=== PATIENT | male | born 1960 | race Caucasian/White ===

== ENCOUNTER 2016-12-08 01:03 | Emergency (ER) | payer BC ==
[2016-12-08 01:08] VITALS: RESP 18
[2016-12-08] MEDS ORDERED: ASPIRIN 81 MG CHEW PO STA (01:19)
[2016-12-08 01:43] LABS: Basophils % (A) 0 %; CH 30.8; CHCM 35.4; Eosinophils # (A) 0.1 k/uL (0-0.7); Eosinophils % (A) 1 %; HCT 43.1 % (39.0-53.0); HGB 14.6 gm/dL (13.0-17.5); Luc # (Auto) 0.15; Luc % (Auto) 2; Lymphocytes # (A) 1.4 k/uL (1.0-4.8); Lymphocytes % (A) 14 %; MCH 29.6 pg (25.0-35.0); MCV 87.2 fL (80.0-100.0); Mean Platelet Volume 7.7; Monocytes # (A) 0.4 k/uL (0-1.0); Monocytes % (A) 4 %; Neutrophils # (A) 8.3 k/uL (1.3-7.7); Neutrophils % (A) 80 %; RBC 4.94 m/uL (4.30-5.90); RDW 12.7 % (11.5-15.5); WBC 10.4 k/uL (3.8-10.6); WBC (Perox) 10.16
[2016-12-08 01:55] LABS: ALT 45 U/L (21-72); AST 28 U/L (17-59); Alkaline Phosphatase 55 U/L (38-126); Amylase 85 U/L (30-110); Anion Gap 12 mmol/L; Blood Urea Nitrogen 22 mg/dL (9-20); Calcium 9.5 mg/dL (8.4-10.2); Carbon Dioxide 24 mmol/L (22-30); Chloride 102 mmol/L (98-107); Glucose 114 mg/dL (74-99); Magnesium 2.1 mg/dL (1.6-2.3); Non-African American GFR(MDRD) >60 (>60 ml/min/1.73 sqM); Partial Thromboplastin Time 22.8 sec (22.0-30.0); Sodium 138 mmol/L (137-145); Total Bilirubin 0.5 mg/dL (0.2-1.3); Total Protein 7.4 g/dL (6.3-8.2)
[2016-12-08 02:06] LABS: Creatine Kinase 93 U/L (55-170)
--- NOTE | 2016-12-08 02:13 | XR ---
EXAM: XR Chest, 1 View CLINICAL HISTORY: Reason: chest pain TECHNIQUE: Frontal view of the chest. COMPARISON: No relevant prior studies available. FINDINGS: Lungs: Unremarkable. No consolidation. Pleural space: Unremarkable. No pneumothorax. Heart: Unremarkable. No cardiomegaly. Mediastinum: Unremarkable. Bones/joints: Unremarkable. IMPRESSION: No evidence of acute cardiopulmonary disease.
[2016-12-08 02:19] LABS: Creatine Kinase MB 1.3 ng/mL (0.0-2.4); Troponin I <0.012 ng/mL (0.000-0.034)
[2016-12-08] MEDS ORDERED: ONDANSETRON 4 MG/2 ML VIAL IVP STA (02:24)
[2016-12-08] MEDS ORDERED: SODIUM CHLORIDE 0.9% 1,000 ML IV ONE (02:54)
--- NOTE | 2016-12-08 04:00 | ED ---
Chest Pain HPI - General Chief Complaint: Chest Pain Stated Complaint: Dizzy/Nausea/Chest Tight Time Seen by Provider: 12/08/16 01:18 Source: patient Mode of arrival: wheelchair Limitations: no limitations - History of Present Illness Initial Comments: This patient is a 56-year-old man who presents to be evaluated after he had some chest tightness and some dizziness that started around 6 PM tonight. The patient states that he had been working out on exercise bike. Patient states that he does this regularly and has not had any chest pain previously. The symptoms did resolve her dizziness and that was the main thing that brought him here. He is denying any associated dyspnea, diaphoresis, nausea or vomiting, palpitations or syncope. MD Complaint: chest pain Onset/Timin -: hour(s) Onset: during exertion Pain Location: substernal Pain Radiation: none Severity: mild Quality: tightness Consistency: constant Improves With: nothing Worsens With: nothing Anginal Symptoms: other (Dizziness) Treatments Prior to Arrival: aspirin - Related Data Home Medications Medication Instructions Recorded Confirmed Doxylamine Succinate [Unisom] 25 mg PO HS 08/31/14 12/08/16 Melatonin 5 mg PO HS 03/06/15 12/08/16 Multivitamins, Thera [Multivitamin 1 tab PO DAILY@1200 03/06/15 12/08/16 (formulary)] Allergies Allergy/AdvReac Type Severity Reaction Status Date / Time erythromycin base Allergy GENITAL Verified 12/08/16 01:08 [Erythromycin Base] SORES Penicillins Allergy DIZZINESS, Verified 12/08/16 01:08 TUNNEL VISION Sulfa (Sulfonamide Allergy SORES IN Verified 12/08/16 01:08 Antibiotics) BOWEL sulfamethoxazole Allergy Unknown Verified 12/08/16 01:08 [From Bactrim] trimethoprim [From Bactrim] Allergy Unknown Verified 12/08/16 01:08 codeine AdvReac MADE PT Verified 12/08/16 01:08 VERY SLEEPY Review of Systems ROS Statement: Those systems with pertinent positive or pertinent negative responses have been documented in the HPI. ROS Other: All systems not noted in ROS Statement are negative. Constitutional: Denies: fever, chills, weakness Eyes: Denies: vision change Respiratory: Denies: cough, dyspnea, wheezes Cardiovascular: Reports: as per HPI, chest pain. Denies: palpitations, dyspnea on exertion, edema, syncope Gastrointestinal: Denies: abdominal pain, nausea, vomiting, diarrhea Genitourinary: Denies: dysuria, hematuria Musculoskeletal: Denies: back pain Skin: Denies: rash Neurological: Denies: headache, weakness, numbness EKG Findings - EKG Results: EKG: interpreted by YESSI RIDDLE (Rate 61 bpm), sinus rhythm, normal axis, normal QRS, normal ST/T, no acute changes - ND, Pacemaker, Normal: Normal tracing: normal tracing Past Medical History Past Medical History: Asthma, GERD/Reflux Additional Past Medical History / Comment(s): Diverticulitis History of Any Multi-Drug Resistant Organisms: None Reported Past Surgical History: Appendectomy, Bowel Resection, Orthopedic Surgery, Prostate Surgery Additional Past Surgical History / Comment(s): TURP IN 2006. BOWEL RESECTION 2008 for diverticulitis. MARKUS. EYE SURGERY (STRABISMUS) 2013, left knee arthroscopically 2013, pain clinic injections Past Anesthesia/Blood Transfusion Reactions: No Reported Reaction Past Psychological History: Depression Smoking Status: Never smoker Past Alcohol Use History: None Reported Additional Past Alcohol Use History / Comment(s): Patient is a lifelong nonsmoker but has had extensive exposure to secondhand smoke. 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 He is currently living alone. There are no pets. 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 Past Drug Use History: None Reported - Past Family History Father Family Medical History: Cancer Additional Family Medical History / Comment(s): LUNG CANCER General Exam Limitations: no limitations General appearance: alert, in no apparent distress Head exam: Present: atraumatic, normocephalic Eye exam: Present: normal appearance. Absent: scleral icterus, conjunctival injection ENT exam: Present: normal oropharynx Neck exam: Present: normal inspection, full ROM Respiratory exam: Present: normal lung sounds bilaterally. Absent: respiratory distress, wheezes, rales, rhonchi Cardiovascular Exam: Present: regular rate, normal rhythm, normal heart sounds. Absent: systolic murmur, diastolic murmur, rubs, gallop GI/Abdominal exam: Present: soft. Absent: distended, tenderness, guarding, rebound Extremities exam: Present: normal inspection, normal capillary refill. Absent: pedal edema, calf tenderness Back exam: Present: normal inspection. Absent: CVA tenderness (R), CVA tenderness (L) Neurological exam: Present: alert Skin exam: Present: warm, dry, intact, normal color. Absent: rash Course Vital Signs 12/08/16 12/08/16 12/08/16 01:06 02:05 03:15 Temperature 98.0 F Pulse Rate 62 62 63 Respiratory 18 18 18 Rate Blood Pressure 137/77 126/82 127/74 O2 Sat by Pulse 100 98 97 Oximetry 12/08/16 05:02 Temperature 96.9 F L Pulse Rate 73 Respiratory 18 Rate Blood Pressure 138/83 O2 Sat by Pulse 99 Oximetry Chest Pain MDM - MDM Patient's 56 year old man who had an episode of chest pain that did resolve and some dizziness following exercise. Discussed admission for telemetry monitoring and serial cardiac enzymes with cardiology consultation with the patient does not want stay. He does understand that these can be associated with cardiac disease and he will follow-up to have a stress test. He will return should any symptoms recur. Also discussed that only one set of cardiac enzymes can occasionally miss ND and the patient understands and will follow-up. Disposition Clinical Impression: Chest pain Disposition: HOME SELF-CARE Condition: Good Instructions: Chest Pain (ED) Additional Instructions: As we discussed, follow-up with the grass farmer to have a stress test. Should any of the symptoms recur, or if any other symptoms develop return immediately. Referrals: Kurt Lundberg MD [Primary Care Provider] - 1-2 days Bam Sullivan MD [STAFF PHYSICIAN] - 1-2 days
[2016-12-08 05:08] VITALS: BP 138/83; PULSE 73; TEMP 96.9
== END 2016-12-08 05:02 | disposition home or self-care (01) ==
LOC: EC 01:03
DX: R07.89 Other chest pain (principal); R42 Dizziness and giddiness; Z88.0 Allergy status to penicillin; Z88.1 Allergy status to other antibiotic agents; Z88.2 Allergy status to sulfonamides; Z88.5 Allergy status to narcotic agent; Z79.899 Other long term (current) drug therapy
CPT/HCPCS: 99285; 96374; 96361 ×2; 36415; 93005; 85379; 80053; 82150; 82550; 82553; 83690; 83735; 84484; 85025; 85610; 85730; 71010; J2405

== ENCOUNTER → 2016-12-24 | Outpatient (CLI) | payer BC ==
[2016-12-24 11:08] LABS: Prostate Specific Antigen 0.56 ng/mL (0.00-4.00)
== END | disposition home or self-care (01) ==
LOC: LABWHC1 07:35
PROVIDERS: ATTEND Family Medicine
DX: N40.0 Benign prostatic hyperplasia without lower urinary tract symptoms (principal); Z13.220 Encounter for screening for lipoid disorders
CPT/HCPCS: 36415; 80061; 84153

== ENCOUNTER 2017-01-03 10:52 | Day surgery (SDC) | payer BC ==
[2016-12-31 12:28] VITALS: BMI 25.8
[~2017-01-03 10:52] MED LIST: LACTATED RINGERS 1,000 ML IV SCH; LIDOCAINE 1% 20 ML VIAL (10MG/ML) FOR IV START INTRADERMA PRN
[2017-01-03 11:18] VITALS: TEMP 98.3
[2017-01-03] MEDS ORDERED: PROPOFOL 10 MG/ML 20 ML VIAL IV ONE (13:35)
[2017-01-03] MEDS ORDERED: IV FLUID CONTINUATION 1,000 ML IV ONE (13:51)
--- NOTE | 2017-01-03 14:13 | P.PCN ---
Date of Procedure: 01/03/17 Preoperative Diagnosis: Postoperative Diagnosis: Procedure(s) Performed: Procedures: 1. Esophagogastroduodenoscopy and biopsy. 2. Total colonoscopy. Preoperative diagnosis: Chronic reflux symptoms and screening for colon neoplasia. Postoperative diagnosis: 1. Very small sliding hiatal hernia with low-grade distal esophagitis. 2. Mild antral gastritis. 3. Diverticulosis with no evidence of acute diverticulitis or strictures. Preparation: HalfLytely prep Sedation: Was provided by anesthesia. Brief clinical history: The patient is a 56-year-old male who is scheduled for this evaluation because of chronic reflux symptoms requiring ongoing therapy. No other alarm symptoms. He also has history of diverticulosis and required segmental resection following a bout of diverticulitis in 2008. This evaluation is to assess for complicated reflux disease and colon neoplasia, age being his risk factor. Procedure: With the patient on his left lateral decubitus position and after informed consent and adequate sedation, I passed the Olympus-GIF 160 video upper endoscope through the cricopharyngeus down the esophagus. GE junction was around 42-43 cm from the incisors and there was a very small sliding hiatal hernia. The esophagus showed a short linear erosion or 2 consistent with LA grade A distal esophagitis. There were no strictures or Fischer's esophagus. The endoscope was then passed into the stomach which was insufflated with air and inspected in detail including the retroflex view in the cardia. There was mild mottling and erythema in the antrum but no ulcers or erosions. Pyloric channel, duodenal bulb, post bulbar area and descending duodenum appeared within normal limits. Because of his symptoms, I obtained biopsies from the duodenum, antrum and esophagus then the endoscope was withdrawn and I proceeded with the colonoscopy. Perianal area did not show any fissures or fistulas. There were no masses felt on digital rectal examination. The Olympus CFQ 160L video colonoscope was then inserted in the rectum in the usual fashion and advanced to the cecum. There were multiple diverticular orifices seen scattered along the length of the bowel all the way to the cecum with no evidence of acute diverticulitis or strictures. The mucosa appeared healthy. No polyps or tumors were seen. I retroflexed the endoscope in the rectum before the endoscope was withdrawn. The patient tolerated the procedure well. Plan: The patient was reassured. Will await biopsy results. Discussed dietary measures. For colon cancer screening, I would recommend repeat exam in 10 years. He will follow up with you as planned. Implants: Indications for Procedure: Operative Findings: Description of Procedure:
[2017-01-03 14:18] VITALS: RESP 18
[2017-01-03 14:26] VITALS: PULSE 69
[2017-01-03 14:35] VITALS: BP 112/80
== END 2017-01-03 15:00 | disposition home or self-care (01) ==
LOC: ORWHC2ENDO 10:52
DX: Z12.11 Encounter for screening for malignant neoplasm of colon (principal); K29.50 Unspecified chronic gastritis without bleeding; K21.0 Gastro-esophageal reflux disease with esophagitis; K44.9 Diaphragmatic hernia without obstruction or gangrene; J45.998 Other asthma; K57.30 Diverticulosis of large intestine without perforation or abscess without bleeding; Z88.1 Allergy status to other antibiotic agents; Z88.0 Allergy status to penicillin; Z88.2 Allergy status to sulfonamides; Z88.5 Allergy status to narcotic agent; Z79.51 Long term (current) use of inhaled steroids; Z79.899 Other long term (current) drug therapy
CPT/HCPCS: 88305; 88342; 43239; J2704; G0121

== ENCOUNTER → 2017-02-28 | Outpatient (CLI) | payer BC ==
--- NOTE | 2017-02-28 09:16 | CT ---
EXAMINATION TYPE: CT sinus wo con DATE OF EXAM: 02/28/2017 COMPARISON: 05/25/2013 HISTORY: Acute frontal sinusitis CT DLP: 609.4 mGycm CONTRAST: 0 mL of Omnipaque 350 The paranasal sinuses are examined in the axial plane at 2 mm thick sections. Reconstructed images i n the coronal plane were obtained. There is dental amalgam scatter artifact Small retention cysts are within the inferior left maxillary sinus. The ethmoid air cells are clear. The sphenoid sinuses are clear. The frontal sinuses are clear. Right frontal sinus is aplastic. The septum is evaluated. There is septal deviation to the [left septal spur is present.. The ostiomeatal units are patent. There is a high riding right jugular bulb. IMPRESSIONS: 1. Left septal deviation with a spur. 2. Very small retention cyst within the inferior left maxillary sinus. 3. The frontal sinus appears clear.
== END | disposition home or self-care (01) ==
LOC: RADCTMAIN 07:23
PROVIDERS: ATTEND Family Medicine
DX: J34.2 Deviated nasal septum (principal); J34.1 Cyst and mucocele of nose and nasal sinus
CPT/HCPCS: 70486

== ENCOUNTER → 2017-10-30 | Outpatient (CLI) | payer BC ==
--- NOTE | 2017-10-30 08:14 | MR ---
EXAMINATION TYPE: MR knee LT wo con DATE OF EXAM: 10/30/2017 COMPARISON: 05/23/2015 HISTORY: Left knee pain TECHNIQUE: Multiplanar, multisequence imaging of the left knee is performed without IV contrast. FINDINGS: There is a complete tear of the anterior cruciate ligament. Posterior cruciate ligament dem onstrates abnormal signal along the proximal origin of the femur suspicious for partial tear as well. This appears progressed from the prior exam. There is a significant narrowing of the medial compartment of the joint space with hypertrophic spurr ing. Grade IV chondromalacia of the articular cartilage along the medial compartment noted. There is grade II chondromalacia patellofemoral joint. There is a small amount of fluid in the suprapatellar bursa. Retinaculum intact. Patellar and quadric eps tendons intact. Medial collateral and lateral collateral ligaments are intact. Pseudo extrusion of the medial meniscu s noted. There is a degenerative tear of the posterior horn and body of the medial meniscus. Lateral meniscus appears intact with intrasubstance signal along the posterior horn compatible with m yxoid degeneration. Marrow signal abnormalities involving the medial tibia and femur likely reactive related to the sever e arthropathy. No diagnostic evidence of fracture or osteonecrosis. Incidental note is made of subcutaneous varices. IMPRESSION: 1. Complete tear of the ACL with partial proximal tear of the PCL. 2. Severe osteoarthritis with chondromalacia as described above. Pseudo extrusion of the medial menis cus with degenerative tear suspected.
== END | disposition home or self-care (01) ==
LOC: RADMRIMAIN 07:14
PROVIDERS: ATTEND Orthopaedic Surgery
DX: S83.512A Sprain of anterior cruciate ligament of left knee, initial encounter (principal); M17.12 Unilateral primary osteoarthritis, left knee; M94.262 Chondromalacia, left knee

== ENCOUNTER → 2018-01-02 | Outpatient (CLI) | payer BC ==
--- NOTE | 2018-01-02 12:24 | US ---
EXAMINATION TYPE: US venous doppler duplex LE LT DATE OF EXAM: 01/02/2018 11:28 AM COMPARISON: NONE CLINICAL HISTORY: I82.402 ACUTE EMBOLISM AND THROMBOSIS OF DEEP VEINS OF LT LE; left calf pain with l ower leg swelling x 1 week and fracture to Lt 5th metatarsal after patient stumbled on stairs; varico se veins medial left leg SIDE PERFORMED: Left leg TECHNIQUE: The lower extremity deep venous system is examined utilizing real time linear array sonog radha with graded compression, doppler sonography and color-flow sonography. VESSELS IMAGED: Common Femoral Vein Deep Femoral Vein Greater Saphenous Vein * Femoral Vein Popliteal Vein Small Saphenous Vein * Proximal Calf Veins (* superficial vessels) Left Leg: Lack of flow and echogenic thrombus indicating DVT left Femoral Vein and Popliteal Vein and upper Calf Veins. Non occluding SVT in upper Left GSV. IMPRESSION: Deep venous thrombosis involving the left femoral vein, left popliteal vein and extendin g into the left upper calf veins. Nonoccluding superficial venous thrombosis is also seen within the left greater saphenous vein. Tech findings called to Dr Lundberg at exam's end documented at 11:52 AM. Patient is taking Eloquis
== END | disposition home or self-care (01) ==
LOC: RADUSWWP 10:47
PROVIDERS: ATTEND Family Medicine
DX: I82.412 Acute embolism and thrombosis of left femoral vein (principal); I82.432 Acute embolism and thrombosis of left popliteal vein

== ENCOUNTER → 2018-01-21 | Outpatient (CLI) | payer BC ==
--- NOTE | 2018-01-21 11:21 | US ---
EXAMINATION TYPE: US venous doppler duplex LE LT DATE OF EXAM: 01/21/2018 10:59 AM COMPARISON: 01/02/2018 CLINICAL HISTORY: M79.672 Pain in left foot. History of DVT left leg (01/02/18), left foot edema, anu ent on blood thinner SIDE PERFORMED: Left TECHNIQUE: The lower extremity deep venous system is examined utilizing real time linear array sonog radha with graded compression, doppler sonography and color-flow sonography. VESSELS IMAGED: External Iliac Vein (EIV) Common Femoral Vein Deep Femoral Vein Greater Saphenous Vein * Femoral Vein Popliteal Vein Small Saphenous Vein * Proximal Calf Veins (* superficial vessels) Left Leg: +Positive for DVT left femoral vein extending into left popliteal vein IMPRESSION: 1. Findings are compatible with a positive exam for DVT left femoral vein extending into the poplitea l vein. This is similar to the prior exam.
== END | disposition home or self-care (01) ==
LOC: RADUSWWP 10:26
PROVIDERS: ATTEND Orthopaedic Surgery
DX: S92.355D Nondisplaced fracture of fifth metatarsal bone, left foot, subsequent encounter for fracture with routine healing (principal); M79.672 Pain in left foot; I80.9 Phlebitis and thrombophlebitis of unspecified site

== ENCOUNTER → 2018-07-07 | Outpatient (CLI) | payer BC ==
[2018-07-07 16:58] LABS: Partial Thromboplastin Time 24.8 sec (22.0-30.0); Prothrombin Time 9.8 sec (9.0-12.0)
[2018-07-08 03:19] LABS: Cardiolipin Ab IgG Interp NEGATIVE (NEGATIVE); Cardiolipin Ab IgM Interp NEGATIVE (NEGATIVE); Cardiolipin IgA Antibody <0.5 U/mL; Cardiolipin IgM Antibody 0.8 U/mL
[2018-07-08 04:23] LABS: Immunoglobulin E 3.61 IU/mL (0.00-114.00)
[2018-07-08 11:03] LABS: Protein C (Activity) 95 % (71-138)
[2018-07-08 11:32] LABS: Anti-Thrombin III Antigen 80 % (80 - 120); Free Protein S Antigen 96 % (57 - 171)
[2018-07-08 11:40] LABS: Immunoglobulin M 47.7 mg/dL (40.0-280.0)
[2018-07-08 13:02] LABS: APTT 41 Sec(s) (<43); DRVVT 1:1 Mix 43 Sec(s) (<44); Dilute Russell Viper Venom 50 Sec(s) (<44)
== END | disposition home or self-care (01) ==
LOC: LABWHC1 14:35
PROVIDERS: ATTEND Family Medicine
DX: D68.69 Other thrombophilia (principal)
CPT/HCPCS: 36415; 81240; 81241; 82784; 82785; 83090; 85301; 85303; 85306; 85610; 85613; 85730; 86147

== ENCOUNTER → 2023-06-03 | Outpatient (CLI) | payer BC ==
--- NOTE | 2023-06-03 08:22 | US ---
EXAMINATION TYPE: US abdomen limited DATE OF EXAM: 06/03/2023 COMPARISON: NONE CLINICAL INDICATION: Male, 63 years old with history of K43.9 VENTRAL HERNIA WITHOUT OBSTRUCTION OR G ANGRE; known palpable for 2 years, no pain Assess for hernia at location of: right paraumbilical 3.7 x 3.5 x 3.7cm probable fat containing hernia seen, no movement with valsalva. This demonstrates c ircumscribed borders with blending in with the surrounding fat. No internal color flow. IMPRESSION: 3.7 cm lesion within right periumbilical area favored to represent a lipoma. No evidence for hernia. Real-time scanning was performed by the product support rep utilizing Valsalva and additional dynamic maneuve rs to assess for hernia.
== END | disposition home or self-care (01) ==
LOC: RADUSWWP 07:32
PROVIDERS: ATTEND Family Medicine
DX: K43.9 Ventral hernia without obstruction or gangrene (principal)
CPT/HCPCS: 76705

== ENCOUNTER 2023-11-06 17:46 | Observation (INO) | payer BC ==
--- NOTE | 2023-11-06 18:29 | XR ---
EXAMINATION TYPE: XR chest 2V DATE OF EXAM: 11/06/2023 6:12 PM CLINICAL INDICATION:Male, 63 years old with history of Chest Pain; [facility] COMPARISON: None TECHNIQUE: XR chest 2V. Frontal and lateral views of the chest.. FINDINGS: Lines/Tubes/Devices: No indwelling lines are seen. Heart/mediastinum: Heart size is normal. Mediastinum appears normal. Pulmonary vascularity: Not increased, Lungs/Pleura: Mild hyperinflation suggested. No evidence of focal consolidation, sizeable pleural ef fusion, or pneumothorax. Musculoskeletal: No acute osseous abnormality demonstrated in the limits of the exam. Multilevel endplate spurring in the spine. Other findings: None. IMPRESSION: No acute cardiopulmonary abnormality. Hyperinflated lungs.
--- NOTE | 2023-11-06 19:08 | ED ---
General Adult HPI - General Chief complaint: Chest Pain Stated complaint: Chest pain Time Seen by Provider: 11/06/23 18:58 Source: patient, RN notes reviewed Mode of arrival: ambulatory Limitations: no limitations - History of Present Illness Initial comments: Patient is a pleasant 63-year-old male presenting to the emergency department with concerns with chest discomfort. Onset of symptoms was a couple hours ago while at home. Discomfort has been waxing and waning. Discomfort is worse with exertion. Patient does have some mild associated dyspnea and did have some palpitations earlier. No history of similar symptoms previously. No nausea. N o diaphoresis. Discomfort is currently rated 3/10 and described as pressure - Related Data Home Medications Medication Instructions Recorded Confirmed Doxylamine Succinate [Unisom] 25 mg PO HS 08/31/14 01/03/17 Melatonin 5 mg PO HS 03/06/15 01/03/17 Multivitamins, Thera [Multivitamin 1 tab PO DAILY@1200 03/06/15 01/03/17 (formulary)] Famotidine 40 mg PO DAILY 12/31/16 01/03/17 Fluticasone Nasal [place] [Flonase 2 spr EA NOSTRIL DAILY 12/31/16 01/03/17 Nasal [place]] Allergies Allergy/AdvReac Type Severity Reaction Status Date / Time erythromycin base Allergy GENITAL Verified 11/06/23 17:56 [Erythromycin Base] SORES Penicillins Allergy DIZZINESS, Verified 11/06/23 17:56 TUNNEL VISION Sulfa (Sulfonamide Allergy SORES IN Verified 11/06/23 17:56 Antibiotics) BOWEL sulfamethoxazole Allergy SORES IN Verified 11/06/23 17:56 [From Bactrim] BOWEL trimethoprim [From Bactrim] Allergy SORES IN Verified 11/06/23 17:56 BOWEL codeine AdvReac MADE PT Verified 11/06/23 17:56 VERY SLEEPY Review of Systems ROS Statement: Those systems with pertinent positive or pertinent negative responses have been documented in the HPI. ROS Other: All systems not noted in ROS Statement are negative. Constitutional: Denies: fever Eyes: Denies: eye pain ENT: Denies: ear pain Respiratory: Reports: as per HPI, dyspnea. Denies: cough Cardiovascular: Reports: as per HPI, chest pain Musculoskeletal: Denies: back pain Past Medical History Past Medical History: Asthma, GERD/Reflux Additional Past Medical History / Comment(s): Diverticulitis History of Any Multi-Drug Resistant Organisms: None Reported Past Surgical History: Appendectomy, Bowel Resection, Orthopedic Surgery, Prostate Surgery Additional Past Surgical History / Comment(s): TURP IN 2006. BOWEL RESECTION 2008 for diverticulitis. MARKUS. EYE SURGERY (STRABISMUS) 2013, left knee SCOPE 2013, pain clinic injections, COLONOSCOPY Past Anesthesia/Blood Transfusion Reactions: No Reported Reaction Past Psychological History: No Psychological Hx Reported Smoking Status: Never smoker Past Alcohol Use History: None Reported Past Drug Use History: None Reported - Past Family History Father Family Medical History: Cancer Additional Family Medical History / Comment(s): LUNG CANCER General Exam Limitations: no limitations General appearance: alert, in no apparent distress Head exam: Present: normocephalic Eye exam: Present: normal appearance Neck exam: Present: normal inspection Respiratory exam: Present: normal lung sounds bilaterally. Absent: chest wall tenderness Cardiovascular Exam: Present: regular rate, normal rhythm Expanded Peripheral pulses: 2+: Radial (R), Radial (L), Posterior Tibialis (R), Posterior Tibialis (L) GI/Abdominal exam: Present: soft. Absent: tenderness Extremities exam: Present: normal inspection. Absent: pedal edema, calf tenderness Neurological exam: Present: alert Psychiatric exam: Present: normal affect, normal mood Skin exam: Present: normal color Course Vital Signs 11/06/23 11/06/23 17:53 19:37 Temperature 97.5 F L Pulse Rate 66 70 Respiratory 18 16 Rate Blood Pressure 111/76 139/86 O2 Sat by Pulse 99 98 Oximetry EKG Findings - EKG Results: EKG: interpreted by ERMD, sinus rhythm, normal axis, normal QRS, normal ST/T Medical Decision Making - Medical Decision Making Was pt. sent in by a medical professional or institution (, PA, REGISTERED MIDWIFE, urgent care, hospital, or halfway...) When possible be specific @ -No Did you speak to anyone other than the patient for history (EMS, parent, family, police, friend...)? What history was obtained from this source @ -Family is present and confirms Did you review nursing and triage notes (agree or disagree)? Why? @ -I reviewed and agree with nursing and triage notes Were old charts reviewed (outside hosp., previous admission, EMS record, old EKG, old radiological studies, urgent care reports/EKG's, halfway records)? Report findings @ -Previous chest x-ray reviewed Differential Diagnosis (chest pain, altered mental status, abdominal pain women, abdominal pain men, vaginal bleeding, weakness, fever, dyspnea, syncope, headache, dizziness, GI bleed, back pain, seizure, CVA, palpatations, mental health, musculoskeletal)? @ -Differential Chest Pain: Stable Angina, Unstable Angina, STEMI, NSTEMI Aortic Dissection, Pneumothorax, Musculoskeletal, Esophageal Spasm GERD, Cholecystitis, Pancreatitis, Zoster, t his is not meant to be an all-inclusive list. EKG interpreted by me (3pts min.). @ -As above X-rays interpreted by me (1pt min.). @ -Chest x-ray shows no acute process CT interpreted by me (1pt min.). @ -None done U/S interpreted by me (1pt. min.). @ -None done What testing was considered but not performed or refused? (CT, X-rays, U/S, labs)? Why? @ -None What meds were considered but not given or refused? Why? @ -None Did you discuss the management of the patient with other professionals (professionals i.e. , PA, REGISTERED MIDWIFE, lab, RT, psych nurse, child protective services social worker, manager property, teacher, correctional officer sergeant, case managers)? Give summary @ -Case was discussed with Dr. Briones who will admit covering Dr. Lundberg Was smoking cessation discussed for >3mins.? @ -No Was critical care preformed (if so, how long)? @ -No Were there social determinants of health that impacted care today? How? (Homelessness, low income, unemployed, alcoholism, drug addiction, transportation, low edu. Level, literacy, decrease access to med. care, senior living, rehab)? @ -No Was there de-escalation of care discussed even if they declined (Discuss DNR or withdrawal of care, Hospice)? DNR status @ -No What co-morbidities impacted this encounter? (DM, HTN, Smoking, COPD, CAD, Cancer, CVA, ARF, Chemo, Hep., AIDS, mental health diagnosis, sleep apnea, morbid obesity)? @ -None Was patient admitted / discharged? Hospital course, mention meds given and route, prescriptions, significant lab abnormalities, going to OR and other pert inent info. @ -Patient reevaluated resting comfortably in bed. Patient is updated on results and plan. Patient will be admitted with cardiac consult. Admission orders written. Undiagnosed new problem with uncertain prognosis? @ -No Drug Therapy requiring intensive monitoring for toxicity (Heparin, Nitro, Insulin, Cardizem)? @ -No Were any procedures done? @ -No Diagnosis/symptom? @ -Chest pain Acute, or Chronic, or Acute on Chronic? @ -Acute Uncomplicated (without systemic symptoms) or Complicated (systemic symptoms)? @ -Default Side effects of treatment? @ -No Exacerbation, Progression, or Severe Exacerbation? @ -No Poses a threat to life or bodily function? How? (Chest pain, USA, ID, pneumonia, PE, COPD, DKA, ARF, appy, cholecystitis, CVA, Diverticulitis, Homicidal, Suicidal, threat to staff... and all critical care pts) @ -No - Lab Data Result diagrams: 11/06/23 19:29 11/06/23 19:29 Lab Results 11/06/23 11/06/23 11/06/23 Range/Units 19:29 19:29 19:29 WBC 9.0 (3.8-10.6) k/uL RBC 4.94 (4.30-5.90) m/uL Hgb 14.4 (13.0-17.5) gm/dL Hct 44.6 (39.0-53.0) % MCV 90.3 (80.0-100.0) fL MCH 29.1 (25.0-35.0) pg MCHC 32.2 (31.0-37.0) g/dL RDW 12.6 (11.5-15.5) % Plt Count 196 (150-450) k/uL MPV 8.4 Neutrophils % 70 % Lymphocytes % 19 % Monocytes % 7 % Eosinophils % 2 % Basophils % 1 % Neutrophils # 6.3 (1.3-7.7) k/uL Lymphocytes # 1.7 (1.0-4.8) k/uL Monocytes # 0.6 (0-1.0) k/uL Eosinophils # 0.1 (0-0.7) k/uL Basophils # 0.1 (0-0.2) k/uL PT 10.1 (10.0-12.5) sec INR 0.9 (<1.2) APTT 22.7 (22.0-30.0) sec D-Dimer 0.33 (<0.60) mg/L FEU Sodium 135 L (137-145) mmol/L Potassium 4.0 (3.5-5.1) mmol/L Chloride 104 (98-107) mmol/L Carbon Dioxide 21 L (22-30) mmol/L Anion Gap 10 mmol/L BUN 23 H (9-20) mg/dL Creatinine 0.99 (0.66-1.25) mg/dL Est GFR (CKD-EPI)AfAm >90 (>60 ml/min/1.73 sqM) Est GFR (CKD-EPI)NonAf 81 (>60 ml/min/1.73 sqM) Glucose 127 H (74-99) mg/dL Calcium 8.9 (8.4-10.2) mg/dL Magnesium 2.0 (1.6-2.3) mg/dL Total Bilirubin 0.5 (0.2-1.3) mg/dL AST 38 (17-59) U/L ALT 28 (4-49) U/L Alkaline Phosphatase 48 (38-126) U/L Troponin I (0.000-0.034) ng/mL Total Protein 6.8 (6.3-8.2) g/dL Albumin 4.1 (3.5-5.0) g/dL 11/06/23 Range/Units 19:29 WBC (3.8-10.6) k/uL RBC (4.30-5.90) m/uL Hgb (13.0-17.5) gm/dL Hct (39.0-53.0) % MCV (80.0-100.0) fL MCH (25.0-35.0) pg MCHC (31.0-37.0) g/dL RDW (11.5-15.5) % Plt Count (150-450) k/uL MPV Neutrophils % % Lymphocytes % % Monocytes % % Eosinophils % % Basophils % % Neutrophils # (1.3-7.7) k/uL Lymphocytes # (1.0-4.8) k/uL Monocytes # (0-1.0) k/uL Eosinophils # (0-0.7) k/uL Basophils # (0-0.2) k/uL PT (10.0-12.5) sec INR (<1.2) APTT (22.0-30.0) sec D-Dimer (<0.60) mg/L FEU Sodium (137-145) mmol/L Potassium (3.5-5.1) mmol/L Chloride (98-107) mmol/L Carbon Dioxide (22-30) mmol/L Anion Gap mmol/L BUN (9-20) mg/dL Creatinine (0.66-1.25) mg/dL Est GFR (CKD-EPI)AfAm (>60 ml/min/1.73 sqM) Est GFR (CKD-EPI)NonAf (>60 ml/min/1.73 sqM) Glucose (74-99) mg/dL Calcium (8.4-10.2) mg/dL Magnesium (1.6-2.3) mg/dL Total Bilirubin (0.2-1.3) mg/dL AST (17-59) U/L ALT (4-49) U/L Alkaline Phosphatase (38-126) U/L Troponin I <0.012 (0.000-0.034) ng/mL Total Protein (6.3-8.2) g/dL Albumin (3.5-5.0) g/dL Disposition Clinical Impression: Chest pain Disposition: ADMITTED IP TO THIS HOSP Is patient prescribed a controlled substance at d/c from ED?: No Referrals: Kurt Lundberg MD [Primary Care Provider] - 1-2 days Time of Disposition: 20:18
[2023-11-06] MEDS: ASPIRIN 81 MG PO STA (19:35)
[2023-11-06] MEDS: NITROGLYCERIN OINT 1 INCH/GM PACKET TOPICAL STA (19:36)
[2023-11-06 19:37] LABS: Basophils # (A) 0.1 k/uL (0-0.2); Basophils % (A) 1 %; Eosinophils # (A) 0.1 k/uL (0-0.7); Eosinophils % (A) 2 %; HCT 44.6 % (39.0-53.0); HGB 14.4 gm/dL (13.0-17.5); Lymphocytes # (A) 1.7 k/uL (1.0-4.8); Lymphocytes % (A) 19 %; MCH 29.1 pg (25.0-35.0); MCHC 32.2 g/dL (31.0-37.0); MCV 90.3 fL (80.0-100.0); Mean Platelet Volume 8.4; Monocytes # (A) 0.6 k/uL (0-1.0); Monocytes % (A) 7 %; Neutrophils # (A) 6.3 k/uL (1.3-7.7); Neutrophils % (A) 70 %; Platelet Count 196 k/uL (150-450); RBC 4.94 m/uL (4.30-5.90); RDW 12.6 % (11.5-15.5)
[2023-11-06 19:47] VITALS: RESP 16
[2023-11-06 19:51] LABS: ALT 28 U/L (4-49); AST 38 U/L (17-59); African American GFR (CKD) >90 (>60 ml/min/1.73 sqM); Albumin 4.1 g/dL (3.5-5.0); Alkaline Phosphatase 48 U/L (38-126); Anion Gap 10 mmol/L; Blood Urea Nitrogen 23 mg/dL (9-20); Calcium 8.9 mg/dL (8.4-10.2); Carbon Dioxide 21 mmol/L (22-30); Chloride 104 mmol/L (98-107); Glucose 127 mg/dL (74-99); Non-African American GFR(CKD) 81 (>60 ml/min/1.73 sqM); Sodium 135 mmol/L (137-145); Total Bilirubin 0.5 mg/dL (0.2-1.3); Total Protein 6.8 g/dL (6.3-8.2)
[2023-11-06 19:57] LABS: INR 0.9 (<1.2); Partial Thromboplastin Time 22.7 sec (22.0-30.0); Prothrombin Time 10.1 sec (10.0-12.5)
[2023-11-06] MEDS ORDERED: NITROGLYCERIN SL TABS 0.4 MG TAB SUBLINGUAL PRN (20:18)
[2023-11-07] MEDS: NITROGLYCERIN OINT 1 INCH/GM PACKET TOPICAL SCH (00:18)
--- NOTE | 2023-11-07 02:12 | P.HPIM ---
History of Present Illness H&P Date: 11/06/23 Patient is a 63-year-old male with a PMH of hypothyroidism who presents to the emergency room with complaints of chest pain. Patient reports that the pain started earlier today, in the upper left chest, rated at a 3 out of 10, radiating back into his shoulder blade, with no associated symptoms, somewhat pleuritic in nature, worsened with exertion. He denied experiencing shortness of breath, palpitations, nausea, vomiting, diaphoresis, or dizziness. Denies any prior personal or family history of coronary artery disease. Also denies any family history of coronary artery disease. Patient is a never smoker. He also denied experiencing lower extremity swelling or pain, fever, chills, cough. Chest x-ray in the emergency room was unremarkable. With EKG showing sinus rhythm at [address]/T wave changes noted as reviewed by me. Laboratory evaluation was remarkable for troponin less than 0.012, WBC count 9.0, hemoglobin 14.4, BUN 23, creatinine 0.99. ED documentation reviewed and case discussed with ED provider. Review of systems: Pertinent positives and negatives as discussed in HPI, a complete review of systems was performed and all other systems are negative. Physical examination: Vital signs reviewed General: non toxic, no distress, appears at stated age, normal weight Derm: no unusual rashes/lesions, warm Head: atraumatic, normocephalic, symmetric Eyes: EOMI, no lid lag, anicteric sclera, pupils equal round reactive to light ENT: Nose and ears atraumatic Neck: No cervical lymphadenopathy, trachea midline, supple Mouth: no lip lesion, mucus membranes moist Cardiovascular: S1S2 reg, no murmur, positive dorsalis pedis pulse bilateral, no edema Lungs: CTA bilateral, no rhonchi, no rales, no accessory muscle use Abdominal: soft, nontender to palpation, no guarding Ext: muscle strength 5 out of 5 in all 4 extremities grossly, no gross muscle atrophy, no contractures, Neuro: CN II-XI grossly intact, no gross focal neuro deficits Psych: Alert, oriented, appropriate affect Assessment: Chest pain with atypical features, rule out ACS Chronic conditions: Hypothyroidism Hyperglycemia Imaging: Chest x-ray in the emergency room was unremarkable with EKG showing sinus rhythm at [address]/T wave changes noted as reviewed by me. Data Review: Laboratory evaluation was remarkable for troponin less than 0.012, WBC count 9.0, hemoglobin 14.4, BUN 23, creatinine 0.99. Plan: Cardiology consult Trend troponin Cardiac monitoring Continue with aspirin and statin Continue with home medications DVT prophylaxis: Lovenox subcu The patient is admitted with an anticipated less than 2 midnight stay for evaluation of chest pain CODE STATUS: Full Code Discussed with: Patient Anticipated discharge place: Home Past Medical History Past Medical History: Asthma, GERD/Reflux Additional Past Medical History / Comment(s): Diverticulitis History of Any Multi-Drug Resistant Organisms: None Reported Past Surgical History: Appendectomy, Bowel Resection, Orthopedic Surgery, Prostate Surgery Additional Past Surgical History / Comment(s): TURP IN 2006. BOWEL RESECTION 2008 for diverticulitis. MARKUS. EYE SURGERY (STRABISMUS) 2013, left knee SCOPE 2013, pain clinic injections, COLONOSCOPY Past Anesthesia/Blood Transfusion Reactions: No Reported Reaction Past Psychological History: No Psychological Hx Reported Smoking Status: Never smoker Past Alcohol Use History: None Reported Past Drug Use History: None Reported - Past Family History Father Family Medical History: Cancer Additional Family Medical History / Comment(s): LUNG CANCER Medications and Allergies Home Medications Medication Instructions Recorded Confirmed Type DULoxetine HCL [Cymbalta] 30 mg PO BID 11/06/23 11/06/23 History Levothyroxine Sodium [Synthroid] 50 mcg PO DAILY 11/06/23 11/06/23 History Omeprazole 40 mg PO DAILY 11/06/23 11/06/23 History Allergies Allergy/AdvReac Type Severity Reaction Status Date / Time erythromycin base Allergy GENITAL Verified 11/06/23 20:31 [Erythromycin Base] SORES Penicillins Allergy DIZZINESS, Verified 11/06/23 20:31 TUNNEL VISION Sulfa (Sulfonamide Allergy SORES IN Verified 11/06/23 20:31 Antibiotics) BOWEL sulfamethoxazole Allergy SORES IN Verified 11/06/23 20:31 [From Bactrim] BOWEL trimethoprim [From Bactrim] Allergy SORES IN Verified 11/06/23 20:31 BOWEL codeine AdvReac MADE PT Verified 11/06/23 20:31 VERY SLEEPY Physical Exam Vitals: Vital Signs Temp Pulse Resp BP Pulse Ox 11/06/23 23:17 72 16 121/75 97 11/06/23 20:17 64 16 144/87 98 11/06/23 19:37 70 16 139/86 98 11/06/23 17:53 97.5 F L 66 18 111/76 99 Intake and Output 11/06/23 11/06/23 11/07/23 14:59 22:59 06:59 Other: Weight 86.183 kg Results CBC & Chem 7: 11/06/23 19:29 11/06/23 19:29 Labs: Abnormal Lab Results - Last 24 Hours (Table) 11/06/23 Range/Units 19:29 Sodium 135 L (137-145) mmol/L Carbon Dioxide 21 L (22-30) mmol/L BUN 23 H (9-20) mg/dL Glucose 127 H (74-99) mg/dL
[2023-11-07] MEDS: ATORVASTATIN 80 MG TAB PO STA (02:25)
[2023-11-07] MEDS: LEVOTHYROXINE 50 MCG TAB PO SCH (06:11)
[2023-11-07] MEDS ORDERED: ASPIRIN 325 MG TAB PO SCH (09:00)
[2023-11-07 09:04] LABS: Chol/HDL Ratio 4.51 Ratio; LDL Cholesterol,Calculated 107.5 mg/dL (0.0-131.0)
[2023-11-07] MEDS: ENOXAPARIN 40 MG/0.4 ML SYRINGE SQ SCH (09:06)
[2023-11-07] MEDS: DULoxetine HCL 30 MG CAPSULE.DR PO SCH (09:06)
[2023-11-07] MEDS: ASPIRIN 81 MG PO SCH (09:07)
[2023-11-07] MEDS: PANTOPRAZOLE 40 MG TABLET PO SCH (09:07)
[2023-11-07] MEDS: ACETAMINOPHEN TAB 325 MG TAB PO PRN (09:07)
--- NOTE | 2023-11-07 10:12 | P.CRDCN ---
History of Present Illness History of present illness: HISTORY OF PRESENT ILLNESS: This is a 63-year-old male with a past medical history significant for hypothyroidism and GERD. 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 We have been asked to see the patient in consultation for chest pain. Patient examined at the bedside. Patient states yesterday he had an episode of chest pain. He states the pain was coming and going throughout the day. He states he has not had any previous episodes of chest pain or pressure. He states the pain was worse with movement. The pain is located on the left side of his chest without any radiation. He denied any shortness of breath. He states he was still having pain when he came to the emergency room. He received aspirin and Nitropaste with relief of his pain. He does report having some mild chest discomfort this morning with deep inspiration and worse when he is sitting up. He is a non-smoker. He reports alcohol use approximately once a week. He denies any drug use including marijuana. DIAGNOSTICS: - EKG reveals sinus mechanism with no signs of acute ischemia. - Chest xray negative for acute process.. - Laboratory data: WBC 9.0. Hemoglobin 14.4. Platelet count 196. D-dimer 0. 33. Sodium 135. Potassium 4.0. BUN 23. Creatinine 0.99. Magnesium 2.0. Troponin negative x 3 - Current home cardiac medications include none. - No previous echocardiogram, stress test, or cardiac catheterization available in EMR for review REVIEW OF SYSTEMS: At the time of my exam: CONSTITUTIONAL: Denies fever or chills. HEENT: Denies blurred vision, vision changes, or eye pain. Denies hemoptysis CARDIOVASCULAR: Denies chest pain. Denies orthopnea. Denies PND. Denies palpitations RESPIRATORY: Denies shortness of breath. GASTROINTESTINAL: Denies abdominal pain. Denies nausea or vomiting. HEMATOLOGIC: Denies bleeding disorders. GENITOURINARY: Denies any blood in urine. SKIN: Denies pruitis. Denies rash. PHYSICAL EXAM: VITAL SIGNS: Reviewed. GENERAL: Well-developed in no acute distress. HEENT: Head is normocephalic. Pupils are equal, round. Sclerae anicteric. Mucous membranes of the mouth are moist. Neck supple. No JVD or thyromegaly LUNGS: Respirations even and unlabored. Lungs essentially clear to auscultation bilaterally. HEART: Regular rate and rhythm. S1 and S2 heard. ABDOMEN: Soft. Nondistended. Nontender. EXTREMITIES: Normal range of motion. No clubbing or cyanosis. Peripheral pulses intact. No lower extremity edema NEUROLOGIC: Awake and alert. Oriented x 3. ASSESSMENT: Chest pain, troponin negative x 3 History of hypothyroidism History of GERD PLAN: An acute coronary but has been ruled out Decrease aspirin to 81 mg daily Check CRP and ESR Obtain 2D echo to assess cardiac structure and function Patient to undergo stress echocardiogram today If stress test is negative and 2D echo does not reveal any significant abnormalities, the patient may be discharged home today from a cardiac standpoint Nurse practitioner note has been reviewed by physician. Signing provider agrees with the documented findings, assessment, and plan of care documented by EARLY CHILDHOOD ASSISTANT as a scribe. Past Medical History Past Medical History: Asthma, GERD/Reflux Additional Past Medical History / Comment(s): Diverticulitis History of Any Multi-Drug Resistant Organisms: None Reported Past Surgical History: Appendectomy, Bowel Resection, Orthopedic Surgery, Prosta te Surgery Additional Past Surgical History / Comment(s): TURP IN 2006. BOWEL RESECTION 2008 for diverticulitis. MARKUS. EYE SURGERY (STRABISMUS) 2013, left knee SCOPE 2013, pain clinic injections, COLONOSCOPY Past Anesthesia/Blood Transfusion Reactions: No Reported Reaction Past Psychological History: No Psychological Hx Reported Smoking Status: Never smoker Past Alcohol Use History: None Reported Past Drug Use History: None Reported - Past Family History Father Family Medical History: Cancer Additional Family Medical History / Comment(s): LUNG CANCER Medications and Allergies Home Medications Medication Instructions Recorded Confirmed Type DULoxetine HCL [Cymbalta] 30 mg PO BID 11/06/23 11/06/23 History Levothyroxine Sodium [Synthroid] 50 mcg PO DAILY 11/06/23 11/06/23 History Omeprazole 40 mg PO DAILY 11/06/23 11/06/23 History Allergies Allergy/AdvReac Type Severity Reaction Status Date / Time erythromycin base Allergy GENITAL Verified 11/06/23 20:31 [Erythromycin Base] SORES Penicillins Allergy DIZZINESS, Verified 11/06/23 20:31 TUNNEL VISION Sulfa (Sulfonamide Allergy SORES IN Verified 11/06/23 20:31 Antibiotics) BOWEL sulfamethoxazole Allergy SORES IN Verified 11/06/23 20:31 [From Bactrim] BOWEL trimethoprim [From Bactrim] Allergy SORES IN Verified 11/06/23 20:31 BOWEL codeine AdvReac MADE PT Verified 11/06/23 20:31 VERY SLEEPY Physical Exam Vitals: Vital Signs Temp Pulse Resp BP Pulse Ox 11/07/23 06:13 61 16 132/96 97 11/07/23 02:29 68 16 126/79 98 11/06/23 23:17 72 16 121/75 97 11/06/23 20:17 64 16 144/87 98 11/06/23 19:37 70 16 139/86 98 11/06/23 17:53 97.5 F L 66 18 111/76 99 Intake and Output 11/06/23 11/07/23 11/07/23 22:59 06:59 14:59 Other: Weight 86.183 kg Results 11/06/23 19:29 11/06/23 19:29 Cardiac Enzymes 11/06/23 11/06/23 11/06/23 Range/Units 19:29 19:29 22:45 AST 38 (17-59) U/L Troponin I <0.012 <0.012 (0.000-0.034) ng/mL Coagulation 11/06/23 Range/Units 19:29 PT 10.1 (10.0-12.5) sec APTT 22.7 (22.0-30.0) sec CBC 11/06/23 Range/Units 19:29 WBC 9.0 (3.8-10.6) k/uL RBC 4.94 (4.30-5.90) m/uL Hgb 14.4 (13.0-17.5) gm/dL Hct 44.6 (39.0-53.0) % Plt Count 196 (150-450) k/uL Comprehensive Metabolic Panel 11/06/23 Range/Units 19:29 Sodium 135 L (137-145) mmol/L Potassium 4.0 (3.5-5.1) mmol/L Chloride 104 (98-107) mmol/L Carbon Dioxide 21 L (22-30) mmol/L BUN 23 H (9-20) mg/dL Creatinine 0.99 (0.66-1.25) mg/dL Glucose 127 H (74-99) mg/dL Calcium 8.9 (8.4-10.2) mg/dL AST 38 (17-59) U/L ALT 28 (4-49) U/L Alkaline Phosphatase 48 (38-126) U/L Total Protein 6.8 (6.3-8.2) g/dL Albumin 4.1 (3.5-5.0) g/dL Current Medications Generic Name Dose Route Start Last Admin Trade Name Freq PRN Reason Stop Dose Admin Aspirin 325 mg 11/07/23 09:00 Aspirin 325 Mg Tab PO DAILY [facility] Atorvastatin Calcium 80 mg 11/07/23 21:00 Atorvastatin 80 Mg Tab PO HS [facility] Duloxetine HCl 30 mg 11/07/23 09:00 Duloxetine Hcl 30 Mg Capsule.Dr PO BID [facility] Enoxaparin Sodium 40 mg 11/07/23 09:00 Enoxaparin 40 Mg/0.4 Ml Syringe SQ DAILY [facility] Levothyroxine Sodium 50 mcg 11/07/23 06:30 11/07/23 06:11 Levothyroxine 50 Mcg Tab PO 50 mcg DAILY@0630 MANJULA Administration Nitroglycerin 0.4 mg 11/06/23 20:18 Nitroglycerin Sl Tabs 0.4 Mg Tab SUBLINGUAL Q5M PRN Chest Pain Nitroglycerin 1 inch 11/07/23 00:00 11/07/23 06:12 Nitroglycerin Oint 1 Inch/Gm Packet TOPICAL 1 inch Q6HR MANJULA Administration Pantoprazole Sodium 40 mg 11/07/23 09:00 Pantoprazole 40 Mg Tablet PO DAILY [facility] Intake and Output 11/06/23 11/07/23 11/07/23 22:59 06:59 14:59 Other: Weight 86.183 kg 11/06/23 19:29 11/06/23 19:29
--- NOTE | 2023-11-07 12:34 | CA ---
Stress Echo Report Jose Barillas Age: 63 Gender: M : 1960 Exam Date: 11/07/2023 09:35 Exam Location: [facility] Stress Ht (in): 69 Wt (lb): 190 Ordering Physician: Marika Rolle Referring Physician: [id number] Sales Merchandise Associate: Nixon New Technologist Procedure CPT: Indication: CP ICD-9 Codes: Rhythm: Patient History: Cardiac Medications: see chart Medications in past 24 hours: Contrast: N/A Stress Results Protocol: Cali Total dose(mL): NA Exercise Duration (min:sec): 10:[address] Depression (mm): Angina Score: Presley Score: METS: 12.1 Resting HR: 70 Resting BP: 116 / 63 Peak HR: 150 Peak BP: 201 / 68 Max Predicted HR: 157 96 % Max Predicted HR Target HR: 133 Double Product: [id number] Stress Summary: Patient exercised on Cali protocol for 10 minutes 5 seconds achieving 12.1 METS. Patient did not encounter any significant chest pain chest pressure or shortness of breath while exercising on the treadmill but the treadmill protocol was completed because of achieving of target heart rate BP Response: Reason for Termination: TARGET HR REACHED/MAX EXERTION Cardiac Symptoms: NO SYMPTOMS ECG Analysis Resting ECG: Sinus bradycardia, normal axis, heart rate 56 bpm Stress EC mm upsloping ST depressions at peak stress which returned back to baseline early in recovery Arrhythmia: Occasional PVCs but no sustained arrhythmia During peak stress Echo Analysis Resting Echo: Normal global and segmental systolic function. No resting regional wall motion normality motion normality Peak Echo Analysis: Normal augmentation of global and segmental systolic function. No obvious stress-induced regional wall MEASUREMENTS (Male/Female) Normal Values CONCLUSIONS Mildly abnormal ECG response to treadmill exercise Nonischemic echocardiographic response to treadmill exercise Mildly hypertensive response to treadmill exercise Good exercise tolerance for age achieving 12.1 METS Normal clinical response to treadmill exercise Overall normal treadmill echo stress test study Dr Jin Keller (Electronically Signed) Final Date: 07 November 2023 12:33
--- NOTE | 2023-11-07 12:36 | CA ---
Transthoracic Echo Report Name: Jose Barillas Age: 63 Gender: M : 1960 Exam Date: 11/07/2023 09:24 Exam Location: [facility] Echo Ht (in): 69 Wt (lb): 190 Ordering Physician: Marika Rolle Attending/Referring Phys: [id number], Aqu[place]ino Market Developer Padma Limon RDCS Procedure CPT: Indications: CP Cardiac Hx: Technical Quality: Fair Contrast 1: Total Dose (mL): Contrast 2: Total Dose (mL): MEASUREMENTS (Male / Female) Normal Values 2D ECHO LV Diastolic Diameter PLAX 4.3 cm 4.2 - 5.9 / 3.9 - 5.3 cm LV Systolic Diameter PLAX 2.8 cm IVS Diastolic Thickness 1.3 cm 0.6 - 1.0 / 0.6 - 0.9 cm LVPW Diastolic Thickness 1.4 cm 0.6 - 1.0 / 0.6 - 0.9 cm LV Relative Wall Thickness 0.6 RV Internal Dim ED PLAX 3.4 cm LA Volume 42.1 cm??? 18 - 58 / 22 - 52 cm??? LA Volume Index 20.4 cm???/m??? 16 - 28 cm???/m??? M-MODE Aortic Root Diameter MM 3.1 cm LA Systolic Diameter MM 4.0 cm LA Ao Ratio MM 1.3 AV Cusp Separation MM 1.9 cm DOPPLER AV Peak Velocity 102.7 cm/s AV Peak Gradient 4.2 mmHg AV Mean Velocity 69.4 cm/s AV Mean Gradient 2.2 mmHg AV Velocity Time Integral 25.1 cm LVOT Peak Velocity 86.4 cm/s LVOT Peak Gradient 3.0 mmHg LVOT Velocity Time Integral 19.5 cm MV Area PHT 5.3 cm??? Mitral E Point Velocity 58.8 cm/s Mitral A Point Velocity 38.8 cm/s Mitral E to A Ratio 1.5 MV Deceleration Time 142.5 ms MV E' Velocity 5.4 cm/s Mitral E to MV E' Ratio 10.8 TR Peak Velocity 259.6 cm/s TR Peak Gradient 27.0 mmHg Right Ventricular Systolic Press 32.0 mmHg FINDINGS Left Ventricle Mildly increased left ventricular wall thickness. Left ventricular cavity size normal. Normal left ventricular systolic function. No obvious regional wall motion abnormalities. Left ventricular ejection fraction is estimated at 55-60 %. Grade 1 diastolic dysfunction. Right Ventricle Normal right ventricular size and function. Right ventricular systolic pressure within normal limits. Right Atrium Normal right atrial size. Left Atrium Normal left atrial size. Mitral Valve Structurally normal mitral valve. No mitral stenosis or prolapse. Mild mitral annular calcification. Trace mitral regurgitation. Aortic Valve Trileaflet aortic valve. No aortic valve stenosis or regurgitation. Aortic valve sclerosis. Tricuspid Valve Structurally normal tricuspid valve. Mild tricuspid regurgitation. Pulmonic Valve Structurally normal pulmonic valve. Trace pulmonic regurgitation. Pericardium No pericardial effusion. Aorta Normal size aortic root and proximal ascending aorta. CONCLUSIONS Left ventricular ejection fraction is estimated at 55-60 %. Grade 1 diastolic dysfunction. No obvious regional wall motion abnormalities. Mild aortic and mitral valve calcification No significant valve dysfunction Normal RV size and function, RVSP estimated at 32 mmHg. Previewed by: Dr Jin Keller (Electronically Signed) Final Date: 07 November 2023 12:35
--- NOTE | 2023-11-07 14:56 | P.DS ---
Providers Date of admission: 11/06/23 20:19 Expected date of discharge: 11/07/23 Attending physician: More Briones MD Consults: 11/06/23 20:19 Consult Physician Urgent Consulting Provider: Libertad Parsons Consult Reason/Comments: cp Do you want consulting provider notified?: Yes Primary care physician: Kurt Lundberg Hospital Course: Discharge Diagnosis: Chest pain, acute coronary event ruled out. Hyperlipidemia, patient started on atorvastatin 40 mg daily. Hypothyroidism. Patient to continue daily medication regimen with levothyroxine 50 mcg daily. GERD. Patient to continue daily medication regimen with omeprazole 40 mg daily. Anxiety. Patient to continue daily medication regimen with duloxetine 30 mg twice daily. Hospital Course: Patient is a pleasant 63-year-old male with a past medical history of hypothyroidism, GERD, asthma, and anxiety. He presented to the emergency department with a chief complaint of chest pain on 11/06/2023. Upon arrival, patient underwent evaluation. Vital signs show blood pressure 111/76, heart rate 66, respiratory rate 18, temp 97.5 F, and SpO2 of 99% on room air. EKG was completed showing normal sinus rhythm at 63 bpm. Chest x-ray negative for acute cardiopulmonary process showing mild hyperinflation of lungs. Labs completed and reviewed. CBC unremarkable. Coagulation profile normal findings. D-dimer negative at 0.33. BMP revealing mild hypocarbia with bicarb of 21 and prerenal azotemia with BUN of 23 otherwise normal findings. Magnesium 2.0. Liver profile unremarkable. Troponin was negative at less than 0.012. Patient was admitted under our services with consultation to cardiology. Troponins trended negative at less than 0.012 x 3 draws. Echocardiogram completed showing a preserved EF of 55 to 60% with mild aortic and mitral valve calcification and no other reported structural or valvular abnormalities. Stress echo completed showing mildly abnormal EKG response to treadmill exercise with nonischemic echocardiographic response to treadmill exercise with good exercise tolerance for aging achieving 12.1 METS. Stress echo was reviewed by fire[facility] cardiology stating stress test is negative patient is stable for discharge from cardiac standpoint recommending outpatient follow-up in their office in 1 to 2 weeks. Medically, patient is stable for discharge at this time and is free from any complaints or further episodes of chest pain/pressure. Physical exam: Vital signs reviewed and stable. General: Nontoxic, no distress and appears stated age. Derm: Skin warm and dry, normal coloration for ethnicity. Head: Atraumatic, normocephalic and symmetric. Eyes: EOMs intact, no lid lag, and anicteric sclera Mouth: no lip lesions, mucus membranes moist Cardiovascular: regular rate and rhythm with normal S1S2, no murmur, positive posterior tibial pulses bilaterally, and cap refill < 2 seconds. Lungs: Respirations even, regular, and unlabored on room air. Lungs CTA bilaterally, no rhonchi, no rales, no wheezing, and no accessory muscle usage. Abdominal: soft, nontender to palpation, no guarding, no appreciable organomegaly Ext: ROM intact. No gross muscle atrophy, no edema, no contractures Neuro: Speech clear, face symmetrical and CN II-XII grossly intact with no noted focal neuro deficits Psych: Alert and oriented to person, place, time, and situation. Appropriate and pleasant affect. A total of 34 minutes of time were spent preparing this complex discharge summary. Pt was discharged on 11/07/2023 at 2:53 PM. Patient was seen independently by Nurse Practitioner. This document was prepared using [employer] dictation software. Please allow for errors in executive manager while rare they do occur. Jeremie Bridges NP rendered care for this patient independently, reviewed the findings and plan as documented in the note above. I did not physically speak with or examine the patient on this date. Patient Condition at Discharge: Stable Plan - Discharge Summary Discharge Rx Participant: No New Discharge Prescriptions: New Atorvastatin [Lipitor] 40 mg PO DAILY 30 Days #30 tablet Continue Omeprazole 40 mg PO DAILY Levothyroxine Sodium [Synthroid] 50 mcg PO DAILY DULoxetine HCL [Cymbalta] 30 mg PO BID Discharge Medication List DULoxetine HCL [Cymbalta] 30 mg PO BID 11/06/23 [History] Levothyroxine Sodium [Synthroid] 50 mcg PO DAILY 11/06/23 [History] Omeprazole 40 mg PO DAILY 11/06/23 [History] Atorvastatin [Lipitor] 40 mg PO DAILY 30 Days #30 tablet 11/07/23 [Rx] Follow up Appointment(s)/Referral(s): Jin Keller MD [Medical Doctor] - 11/15/23 2:45 pm Kurt Lundberg MD [Primary Care Provider] - 1-2 days Patient Instructions/Handouts: Chest Pain (DC) Activity/Diet/Wound Care/Special Instructions: Activity: As tolerated. Take breaks as needed. Diet: Heart healthy and carb consistent diet. Avoid salts, or foods with hidden salts such as canned or boxed foods and frozen dinners. Extra salt makes your heart work harder and traps the fluid in your body for longer. Special Instructions: Take all of your medications as directed and remember to keep all of your doctor's appointments and follow-up as needed. Thank you for allowing us to participate in your care, it was truly a pleasure having you for our patient!!! . Discharge Disposition: HOME SELF-CARE
[2023-11-07 15:29] VITALS: BP 144/82; PULSE 81; TEMP 98.9
[2023-11-07] MEDS ORDERED: ATORVASTATIN 80 MG TAB PO SCH (21:00)
== END 2023-11-07 15:16 | disposition home or self-care (01) ==
LOC: EC 17:46 → 6NMEDSUR 20:19
PROVIDERS: ADMIT Internal Medicine; ATTEND Internal Medicine
DX: R07.89 Other chest pain (principal); E78.5 Hyperlipidemia, unspecified; E03.9 Hypothyroidism, unspecified; K21.9 Gastro-esophageal reflux disease without esophagitis; J45.909 Unspecified asthma, uncomplicated; R79.89 Other specified abnormal findings of blood chemistry; R73.9 Hyperglycemia, unspecified; F41.9 Anxiety disorder, unspecified; Z79.890 Hormone replacement therapy; Z79.899 Other long term (current) drug therapy; Z88.1 Allergy status to other antibiotic agents; Z88.2 Allergy status to sulfonamides; Z88.5 Allergy status to narcotic agent
CPT/HCPCS: 96372; 99285; 36415; 93005; 93306; 93351; 85379; 80061; 80053; 85652; 83735; 84484 ×2; 85025; 85610; 85730; 86140; 71046; G0378 ×2; J1650

== ENCOUNTER → 2024-01-29 | Outpatient (CLI) | payer BC ==
--- NOTE | 2024-01-31 18:59 | MR ---
EXAMINATION TYPE: MR thoracic spine wo con DATE OF EXAM: 01/29/2024 8:05 PM CLINICAL INDICATION:Male, 63 years old with history of M54.14 RADICULOPATHY, THORACIC REGION; PHH, Mi d back pain x1 month, COMPARISON: No priors. TECHNIQUE: Multi planar, multi sequence imaging was performed utilizing: T1-weighted, short-tau inver cinda recovery and T2-weighted of the thoracic spine. IV Contrast: cc (none if empty) FINDINGS: Alignment: Alignment is within normal limits. Vertebral bodies have preserved heights. Spinal cord: Spinal cord is within normal limits for signal. Discs: Intervertebral disc signal is maintained. No evidence of significant spinal canal or neural fo raminal stenosis. There is no evidence of extradural defects or central spinal canal narrowing at any thoracic vertebral body level Osseous structures: No abnormal bony edema on inversion recovery sequences. Multilevel osteophyte for mation and facet joint arthropathy. Scattered disc space narrowing. Multilevel perineural cysts at th e neural foramen. Largest on the right at T7-T8 and T9-T10 measuring up to 17 and 11 mm respectively. No foraminal stenosis worse at T10-T11 and the left with mild neural foraminal stenosis. The right d emonstrates perineural cyst measuring up to 10 mm. IMPRESSION: 1. No evidence for significant spinal canal stenosis or neural foraminal stenosis. 2. Multiple bilateral perineural cysts. 3. No evidence for bony edema or other acute process.
== END | disposition home or self-care (01) ==
LOC: RADMRIMAIN 19:45
PROVIDERS: ATTEND Family Medicine
DX: M54.14 Radiculopathy, thoracic region (principal); G96.191 Perineural cyst
CPT/HCPCS: 72146

== ENCOUNTER → 2024-07-22 | Outpatient (CLI) | payer BC ==
--- NOTE | 2024-07-23 09:07 | US ---
EXAMINATION TYPE: US venous doppler duplex LE LT DATE OF EXAM: 07/22/2024 11:30 AM COMPARISON: NONE CLINICAL INDICATION: Male, 64 years old with history of I82.409 ACUTE EMBOLISM AND THOMBOS; Left leg pain and lump. , Pain TECHNIQUE: The lower extremity deep venous system is examined utilizing real time linear array sonog radha with graded compression, color doppler sonography, and spectral doppler. SIDE PERFORMED: Left FINDINGS: VESSELS IMAGED: Common Femoral Vein Deep Femoral Vein Greater Saphenous Vein * Femoral Vein Popliteal Vein Small Saphenous Vein * Proximal Calf Veins (* superficial vessels) Left Leg: Positive for DVT Popliteal Vein. , Report was provided to the office at the of imaging. IMPRESSION: 1. Deep venous thrombosis in the popliteal vein left lower extremity [facility], , 07/23/2024 9:04 AM
== END | disposition home or self-care (01) ==
LOC: RADUSWWP 10:49
PROVIDERS: ATTEND Family Medicine
DX: I80.01 Phlebitis and thrombophlebitis of superficial vessels of right lower extremity (principal)

== ENCOUNTER 2025-02-18 20:32 | Emergency (ER) | payer BC ==
[2025-02-18 20:37] VITALS: RESP 18; TEMP 98.1
--- NOTE | 2025-02-18 22:43 | XR ---
EXAM: XR Left Humerus, 2 or More Views CLINICAL HISTORY: ITS.REASON XR Reason: injury TECHNIQUE: Frontal and lateral views of the left humerus. COMPARISON: No relevant prior studies available. FINDINGS: Bones/joints: No acute fracture. No dislocation. Soft tissues: Unremarkable. IMPRESSION: No acute osseous findings.
--- NOTE | 2025-02-18 22:44 | XR ---
EXAM: XR Left Forearm, 2 Views CLINICAL HISTORY: ITS.REASON XR Reason: injury TECHNIQUE: Frontal and lateral views of the left forearm. COMPARISON: No relevant prior studies available. FINDINGS: Bones/joints: No acute fracture. No dislocation. Soft tissues: Unremarkable. IMPRESSION: No acute osseous findings.
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
[2025-02-19 00:12] VITALS: BP 141/79; PULSE 71
== END 2025-02-18 23:55 | disposition home or self-care (01) ==
LOC: EC 20:32
DX: S63.502A Unspecified sprain of left wrist, initial encounter (principal); Z88.2 Allergy status to sulfonamides; Z88.1 Allergy status to other antibiotic agents; Z88.5 Allergy status to narcotic agent; Z88.0 Allergy status to penicillin; V89.9XXA Person injured in unspecified vehicle accident, initial encounter; Y93.55 Activity, bike riding; Y92.410 Unspecified street and highway as the place of occurrence of the external cause
CPT/HCPCS: 99283